=== PATIENT | male | born 1950 | race Caucasian/White ===

== ENCOUNTER → 2016-11-28 | Outpatient (CLI) | payer MEDICARE, OTHER ==
[~2016-11-28] MED LIST: ASPI-557 PO; ATOR40TA64 PO; BICA50TA5 PO; FINA5TAB40 PO; FLEC50TA2 PO; GABA-338 PO; METO-68 PO; MULT-338 PO; OMEP40CA11 PO; TAMS0.4C46 PO
--- NOTE | 2016-11-28 13:06 | DI ---
Indication: ITS.REASON: C61 PROSTATE CA PROCEDURE: NM BONE SCAN, WHOLE BODY: Encounter: Subsequent Comparison: Bone scan dated May 15, 2016 Technique: 27.2 mCi of Tc-99m MDP was administered intravenously. Anterior and posterior planar whole-body and spot images were obtained. FINDINGS: The scan demonstrates the expected normal biodistribution for the radiotracer. There is probable degenerative uptake seen in the shoulders, left upper cervical spine, knees and left ankle. There is no abnormal radiotracer uptake to suggest bony metastasis. IMPRESSION: No evidence of metastatic disease to the skeleton. .
== END ==
LOC: IMA 09:23
PROVIDERS: ATTEND Internal Medicine Hematology & Oncology
DX: C61 Malignant neoplasm of prostate (principal)
CPT/HCPCS: 78306; A9503